=== PATIENT | female | born 2000 | race Caucasian/White ===

== ENCOUNTER → 2020-04-08 12:51 | Outpatient (CLI) | payer OTHER, SELFPAY ==
[2019-08-21 13:27] VITALS: BMI 21.2
[2020-04-08 15:32] LABS: ALB/GLOB Ratio 1.1 RATIO (0.9-2.4); AST(SGOT) 15 U/L (15-37); Alanine Aminotransfer ALT/SGPT 21 U/L (13-56); Alkaline Phosphatase 54 U/L (45-117); Anion Gap 6 (5-15); BUN 15 mg/dL (7-18); BUN/Creat Ratio 16.4 RATIO (10-20); Calcium,Total 9.3 mg/dL (8.5-10.1); Chloride 104 mmol/L (98-107); Creatinine, Serum 0.91 mg/dL (0.55-1.02); EST Glomerular Filtration Rate 83 mL/min (>60); Est Glom Filt Rate - Afr Amer 101 mL/min (>60); Globulin 3.8 g/dL (2.2-4.2); Glucose 80 mg/dL (74-106); Potassium 3.9 mmol/L (3.5-5.1); Protein, Total 7.8 g/dL (6.4-8.2); Sodium Level 137 mmol/L (136-145); Thyroid Stim Hormone (TSH) 1.25 uIU/mL (0.358-3.74)
== END ==
PROVIDERS: PCP Family Medicine; Referring Provider Family Medicine; Visit Provider Family Medicine
DX: R00.0 Tachycardia, unspecified (principal)
CPT/HCPCS: 36415; 80053; 84443

== ENCOUNTER 2021-01-31 09:00 | Outpatient (RCR) | payer OTHER, SELFPAY ==
[2021-01-25 13:29] VITALS: BMI 21.2
--- NOTE | 2021-01-31 08:57 | BH.SGPN.GN ---
Behaviors/Verbalizations/Mental Status: []Eye contact is good. Motor activity is appropriate. Appearance is casual. Speech is Appropriate. Mood is anxious and depressed. Affect is congruent. Thoughts are linear and logical. No evidence of psychosis. Reviewed daily check in sheet and no reports of suicidal ideations or intent. Client Response/Progress/Benefit: []Pt first day in IOP tx, she was an attentive participant AEB actively listening, nodding throughout, as well as willingness to process with group. Pt reports emotion for the day as ?anxious and irritable? and discussed this is related to several stressors leading to client seeking IOP tx. Client discussed she has been struggling all summer with a loss of motivation and interest which has impacted overall mood and led to becoming increasingly isolated. Client shared wanting to work on improving her ability to cope with depression and find healthy skill for managing her emotions. Discussed looking forward to the shared experience of the group treatment environment as well. Pt benefited from group support, encouragement, and feedback. Will continue in IOP tx to continue to improve mood stability, improve healthy coping behaviors, and prevent decompensation. Narrative Note: []
--- NOTE | 2021-01-31 10:10 | BH.SGPN.GN ---
Behaviors/Verbalizations/Mental Status: [] Eye contact is good. Motor activity is appropriate. Appearance is casual. Speech is Appropriate. Mood is depressed. Affect is flat. Thoughts are linear and logical. No evidence of psychosis. Client Response/Progress/Benefit: [] Pt participated at times during group discussions. Attentive during psychoeducation. Participated and provided insight along with peers on obstacles or potholes that hinder our ability to communicate in stressful situations. Group identified the following obstacles; impulsivity (reacting to fast to comments and situations), mental health struggles, physical health struggles (headaches, pain, poor sleep), toxic or unhealthy relationship patterns, work/responsibilities (feeling overwhelmed), lack of proper self-care on our part, and negative thinking patterns (mind-reading, catastrophizing). Pt provided insight on how emotion and mood can impact effective communication. Pt did well in her role in the experiential activity and was able to communicate effectively with peers. Benefited from increased awareness on how our emotions impact our communication. Will continue in IOP to maintain safety, increase healthy coping skills, and to prevent decompensation. Narrative Note: []
--- NOTE | 2021-01-31 11:10 | BH.SGPN.GN ---
Behaviors/Verbalizations/Mental Status: []Client alert and oriented, neatly dressed and groomed. Eye contact good. Motor activity appropriate. Speech within normal limits. Affect constricted, mood anxious. Thoughts linear, logical, no signs of hallucinations or delusions. Client Response/Progress/Benefit: []Client engaged in session AEB client listening attentively to peers and providing input. Attentive during psychoeducation on 4 zones of regulation. Client able to identify feelings and behaviors for each zone. Client identified coping skills one can use to support self in each zone which included: opposite action, exercise, journaling, reaching out to support, and grounding skills. Client stated belief that she is in the yellow and blue zones today as client is anxious and agitated, but also sad. Client stated she plans to cook and exercise today to improve her mood. Benefited from increased education on zones of regulation or stages of alertness for emotions and healthy coping skills to use for each zone. First day of IOP tx. Will continue IOP tx to prevent decompensation, learn healthy coping skills, and improve daily functioning. Narrative Note: []
--- NOTE | 2021-02-02 09:00 | BH.SGPN.GN ---
Behaviors/Verbalizations/Mental Status: []Client alert and oriented, neatly dressed and groomed. Eye contact good. Motor activity appropriate. Speech within normal limits. Affect congruent, mood anxious. Thoughts linear, logical, no signs of hallucinations or delusions. Reviewed client?s symptom tracker, no risk for suicidal ideation, plan, or intent as of 02/02/21 Client Response/Progress/Benefit: []Client responded well to session, first week of IOP tx. Client reports that her mood day has improved since her first day, but she still feels a little low. Client shared her biggest stressors right now are returning to school and dealing with depression. Client received supportive statements and coping skills from peers. Client stated she has some ideas of what will help client be more successful at school such as taking less classes and living alone. Appeared to benefit from group support. Will continue IOP tx improve functioning, reinforce healthy coping skills, and reduce isolation. Narrative Note: []
--- NOTE | 2021-02-02 10:15 | BH.SGPN.GN ---
Behaviors/Verbalizations/Mental Status: [] Eye contact is good. Motor activity is appropriate. Appearance is casual. Speech is Appropriate. Mood is depressed. Affect is flat. Thoughts are linear and logical. No evidence of psychosis. Client Response/Progress/Benefit: [] Pt participated at times during group discission. Participated in small group activity. Attentive during psychoeducation on fixed mindset. Pt along with her peers provided insight on the aspects of a fixed mindset which included; being rigid, absolute thinking, why bother perspective, no confidence that one can succeed, and thoughts that one will never get better. Pt and peers were presented with a task which was meant to seem impossible. Pt identified common fixed mindset statements that she often uses which are I'll always be single and I can't get through this. Benefited from education on fixed mindset and how it impacts mental health. Will continue in IOP to maintain safety, increase healthy coping skills, and improve functioning. Narrative Note: []
--- NOTE | 2021-02-02 11:15 | BH.SGPN.GN ---
Behaviors/Verbalizations/Mental Status: [] Client alert and oriented, casually dressed and groomed. Eye contact good. Motor activity appropriate. Speech within normal limits, quiet. Affect congruent. mood anxious and depressed. Thoughts linear, logical, no signs of hallucinations or delusions. Client Response/Progress/Benefit: [] Client new to IOP tx. She did well to remain engaged during activity and discussion AEB remaining attentive and taking notes throughout. Client did well to engage as group worked on identifying characteristics and benefits of adopting a growth mindset. Listened to fellow participants reframing the example fixed thoughts into growth mindset thoughts. Client worked in small group to apply skills learned to reframe own personal fixed thoughts. Reframed personal fixed thought of ?I can?t get through this? with growth mindset thought of ?It?s okay if I need help. This might be really hard right now but I can take it one step at a time?. Noted that this would aid in reducing anxiety, and improve willingness to ask for help. Benefitted from discussing benefits of growth mindset and brainstorming strategies for prompting growth-mindset. Will continue IOP tx to continue to promote active thought challenging and skill application, maintain stability, as well as continue to improve healthy coping repertoire. Narrative Note: []
--- NOTE | 2021-02-02 11:22 | BH.NA ---
Physical Data - Vital Signs Pulse Rate: 91 Blood Pressure: 115/76 - Height/Weight Height: 1.65 m Weight:: 68.946 kg Weight in Pounds: 152.0 lbs Current Medication Compliance - Medication Compliance Do you take your medication as prescribed?: Yes Nutritional History - Appetite Nutritional Instructions:: If client shows signs of a swallowing problem, weight change of 10 pounds or more in the last month, or is on a diabetic diet, the physician will review and request a dietitian consult, as appropriate. All unintentional weight loss will be referred to the physician for decision on need for dietitian consult. Describe your appetite:: Good Additional nutritional information:: Client states she has had a 10-20lb weight gain in the last year. Functional Assessment - Sleep Pattern Describe any problems with sleeping: Client states she sleeps about 8 hours per night. - Activities Motor Activity:: Functional Sensory/Communication Assess - Communication Problems Do you have difficulty understanding what people are saying?: No Learning Assessment - Education What is your level of education?: Some College Medical Problems/History - Pain Assessment Do you have acute or chronic pain?: No - Additional History Additional comments:: OCD, anxiety Surgical History - Surgical History Have you had any surgeries? If so, list type and date:: No Substance Abuse - Substance Abuse Please describe substance abuse in the last 30 days:: Client denies alcohol, tobacco or substance use. Mental Status Summary - Mental Status Significant Findings/Observations on Appearance and Mood:: Client is alert and oriented x 4. Client is casually groomed with good hygiene. Client makes good eye contact. Client's voice has normal rate and volume. Client has appropriate affect and makes logical associations. Client denies delusions/hallucinations. Client reports fleeting SI at times. Suicide Assessment - Suicidal Ideation Are you currently or have you been suicidal in the past?: Yes - client states occasional fleeting SI Suicidal Intentional Rating Scale (SIRS): Suicidal thoughts (past) Physician Notification: If Active suicidal thoughts/Will not contract for safety is checked, contact physician and document in the Physician Notification section below. Assault History/Potential Past Psychiatric History - Treatment Hx Past Psychiatric Medications:: Lexapro, Klonopin, Xanax Age of first mental health symptoms: Client states she was diagnosed with OCD and anxiety at age 15 and has been on medication for both since. Describe (age, circumstance, etc) any past hospitalizations: None. Current providers for mental health treatment (counselor, psychiatrist, assistant case manager, etc.): counselor at [facility] Risk Assessment - Age Age: Less than 60 - Mental Status Mental Status: Willing & able to ask for assistance when needed - Physical Status Physical Status: No problems - Impairments Impairments: None - Elimination Elimination: Continent AND independent - Gait or Balance Gait or Balance: Walks independently - Hx of Falls History of falls in the past 6 months: No known history - Medications/Substances Psychotropics:: Antidepressants, Antipsychotics Others:: Antihypertensives Medications/substances used within the past 24 hours or ordered to administer: 3 or more of the medications/substances listed above - Total Score Total Points:: 2 RN Summary of Impressions - Impressions Recommendations: Include psychiatric and medical issues, treatment planning recommendations, and discharge planning needs. Impressions: Psychiatric Issues: 1. Obsessive-compulsive disorder. 2. Generalized anxiety disorder, separation anxiety, social anxiety disorder. 3. Major depressive disorder, recurrent, severe without psychosis. 4. School, primary support issues - Level of Care How do the client's current symptoms and functional deficits support need for this level of care?: Client was referred to IOP by PCP and encouraged by parents to come due to worsening depression and anxiety. Client states this summer she has felt very depressed, endorsing feelings of hopelessness, isolation, feeling numb, and decreased ADL's. Client has OCD and states this summer she has had an increased in obsessive thoughts and does have some compulsions at times (ritual praying and bible reading). Client reports fleeting SI at times but denies plan. IOP will promote gains and prevent further decompensation while providing social support and skills training.
[2021-02-02 11:44] VITALS: BP 115/76; PULSE 91
--- NOTE | 2021-02-02 12:47 | BH.PSY.EVA_ITS ---
Psychiatric Evaluation Initial Evaluation Initial Evaluation: History of Present Illness: [] The patient is a 20-year-old single female with a history of OCD and generalized anxiety disorder who is referred to the [facility] behavioral health IOP program by her primary care doctor due to worsening symptoms of depression and anxiety. The patient currently lives with her parents and her 19-year-old brother in [facility]. The patient has a history of OCD since 11th grade and this involves intrusive thoughts that are gnosticist in nature. The patient engages in rituals including reading the Bible and praying a lot to relieve the anxiety caused by the intrusive gnosticist thoughts. She has thoughts such as if I do not read the Bible, something bad will happen. She has other thoughts around sin. In addition and recently the patient's intrusive thoughts have also involved obsessing over whether a pablo she is communicating with will respond to her texts. She becomes obsessed over this and this is even interfered with her being present when she is with other friends. The patient also checks curling irons and locks at times but this is much less than her above obsessions and prior rituals. She is a [employer] but does not attend any churches. For primary support she has her mother. Her biggest stress now is going back to college at [employer] in about 4 weeks. She is supposed to him move into a dorm room at that time as she starts her senior year at college but in the past her anxiety has been so severe about living in a dorm room that she has had to commute from home to college. She has separation anxiety still and had it as a child. She is cur rently in school for film studies but she is uncertain if she will do this for living. She endorses feeling depressed which has increased in the past month or 2. She has apathy and has been isolating herself. She spends a lot of time lying in bed. She endorses feeling hopelessness and sometimes worthlessness. She feels guilt a lot for her sins. She is not enjoying anything she does. Her appetite is okay and her sleep is okay at 8 hours a night. Her energy level and concentration are both decreased. She has had passive thoughts of in the past week. She also has had fleeting fantasy of suicidal ideation with a plan to overdose. She denies active suicidal ideation at this time. She denies homicidal ideation, hallucinations, delusions or symptoms of staci ever. She denies a history of self-harm, seizure or head trauma. She denies panic attacks, eating disorder, trauma or PTSD. She does admit to being a worrier all her life and she also admits to social anxiety. Current Psychiatric Medications: [] Effexor Exar 225 mg p.o. nightly (she takes 375 mg capsules and has been on this for 1 year); Abilify 5 mg p.o. daily (x6- month); BuSpar 10 mg twice daily; metoprolol 25 mg p.o. daily Past Psychiatric History: [] No history of psychiatric admissions and no suicide attempts ever. Her primary care doctor gives her her medications and she has a counselor now. Counseling has been helpful to her and she has had it off and on since age 12. She was diagnosed with OCD at age 15. She first took medications for psychiatric reasons at age 15 for OCD and depression. In the past she has taken Prozac for about 2 years which helped her. It was discontinued at age 17 because the doctor felt it was not working enough anymore. She also has taken a few other medications whose name she does not recall and she has also taken Lexapro, Xanax and Klonopin in the past. Substance Use History: [] No drug use. No marijuana use. No rehab ever. No alcohol use. Non-smoker and no vaping. Allergies: [] No known allergies Medications: [] For psych meds as above plus oral contraceptive pills. Past Medical History: [] No medical illnesses. No surgeries ever. She is a 0 para 0 female who has regular menstrual periods. Family Psychiatric History: [] Mother is 50 years old and father is 60 years old and they are relatively healthy. Her mother has OCD but patient says she is undiagnosed. Her maternal grandmother also had OCD which was diagnosed. No suicides in the family. No substance issues in the family. Personal/Social History: [] She was born in [place] and then moved to [place] at age 13. She describes her childhood as happy but I have always worried about everything. Her parents are loving and she has 1 brother 2 years younger and she gets along well with him. She denies any physical, verbal, emotional or sexual abuse ever. She did have separation anxiety and going to kindergarten first grade and still has it in regards to not wanting to live at the dorm in college. School was hard for her due to spelt duration anxiety and due to her social anxiety. However she has some friends and she did graduate high school and then went to [employer] and is about to start her senior year there. She has commuted to college but will try to live in the dorms in about 4 weeks. She is heterosexual but has not had any serious boyfriends and is not sexually active. 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 Legal History: [] No arrests ever. 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 Review of Systems: [] Review of systems negative except as noted in the present illness. Vital Signs: [] Reviewed in nurses notes. Mental Status Examination: [] Patient is a 20-year-old female who is seen wearing a mask due to the pandemic and is casually dressed and groomed with good hygiene. She has no psychomotor agitation or retardation. She appears normal for stated age. Eye contact is good and speech is normal rate and rhythm and fluent with no pressure. Mood is anxious and depressed. Affect is constricted. Thought process is goal-directed and organized. Thought content: There is evidence of intrusive thoughts around judaism and around worry that romantic interests will text her back. There is evidence of passive thoughts of and fleeting passive suicidal ideation with a plan to overdose. She denies active suicidal ideation in the past few days. There is no evidence of homicidal ideation, hallucinations, delusions or symptoms of staci ever. Diagnoses: [] 1. Obsessive-compulsive disorder 2. Generalized anxiety disorder, separation anxiety, social anxiety disorder 3. Major depressive disorder, recurrent, severe without psychosis 4. School, primary support issues Plan: [] The patient will start the IOP program at [facility] as the structure, support, education, group therapy will hopefully prevent worsening of the patient's symptoms. She felt safe during the interview and if it anytime she does not feel safe she will let us know or go to the emergency room. The risks, options, possible side effects and complications of the medications were discussed with the patient and she understands and accepts these. No medication changes were made as the patient feels the current regimen has helped her significantly. If the patient's symptoms do not improve in the next week or 2 with the support of the IOP program I will consider increasing the Abilify or adding an additional medication. I will see the patient in follow-up in 1 to 2 weeks. She will continue to follow-up with her outpatient providers also.
--- NOTE | 2021-02-02 13:01 | BH.DR.ITP ---
Initial Treatment Plan Patient Information Visit Information: ADMISSION DATE: EXPECTED LOS: 4-6 weeks Problems/Symptoms Problem #1:: Depression Symptom:: Sadness, hopelessness, apathy, anhedonia, decreased energy, decreased concentration, passive thoughts of , fleeting passive suicidal ideation Problem #2:: Anxiety Symptom:: Worry, rumination, intrusive thoughts and rituals, avoidance of social activity
--- NOTE | 2021-02-02 15:33 | BH.MTP ---
[facility] Treatment Plan - Patient Information Program Physician:: Dr. Gela Rene Primary Therapist:: Payal GASTON - Psychiatric Diagnoses Psychiatric Diagnoses:: Obsessive-compulsive disorder; Generalized anxiety disorder, separation anxiety, social anxiety disorder; Major depressive disorder, recurrent, severe without psychosis F 33.2 Diagnosis Code(s):: F 33.2 - Estimated LOS Estimated LOS (in weeks):: 4 Problem/Goal #1 - Problem/Goal #1 Stated Goal:: Client will reduce depressive symptoms, thoughts of , and apathy due major depressive disorder. Description of Barriers: Client's goal is to return to college in a month, which puts a time barrier on treatment. Client endorses numerous distorted thought patterns that reinforce depression and OCD. Client reports not enjoying activities she used to and little motivation. Functional Impact: Client is a 20-year-old female with a history of OCD, depression, and anxiety. Client was referred by her PCP due to worsening symptoms of depression, OCD, and anxiety over the past few months. Client was diagnosed with OCD in high school and she reports that her intrusive thoughts have decreased significantly since getting counseling. However, some intrusive thoughts are still present such as if I don't read the bible something bad will happen. Client reports her OCD manifests in different ways and she is currently having obsessional thoughts about a pablo she is talking to not responding to her texts. Client endorses a depressed mood over the past few months with lack of concentration, lack of energy, crying spells, isolation, apathy, and hopelessness. Client also endorses thoughts of and fleeting passive suicidal ideations at times. Returning to school is a major stressor and client plans to return in a month. Client's symptoms are currently impacting her social and educational functioning. Goal Relevant Strengths/Supports: Client is intelligent and has had counseling in the past, so she has knowledge of coping skills. Client's parents are supportive. - Objectives Objective #1 Stated Objective: Client will learn and utilize 2-3 healthy coping strategies to better manage depressive symptoms as shown by reduced DSM-5 scores. Interventions: Through group and individual sessions, therapist will help client identify triggers and warning signs of depression. Therapist will teach client various coping skills to manage her symptoms and give client tangible resources to use to regulate emotions. Therapist will provide psychoeducation on cognitive distortions and maintenance cycles and strategies to break unhealthy maintenance cycles. Discharge Criteria: Client will have met this goal when she can report learning and using at least 2 coping skills to manage depressive symptoms and show a reduction in DSM-5 depression symptoms. Target Date: 02/28/21 Review Date: 02/28/21 Status: open Objective #2 Stated Objective: Client will identify at least 2-3 negative self-talk messages used to reinforce depression/loneliness and replace thoughts with positive, realistic messages. Interventions: Therapist will help client identify distorted, negative beliefs about self and replace with more realistic, affirmative messages. Therapist will use CBT to help client increase insight to the connection between thoughts, emotions, and behaviors. Therapist will help client increase awareness of unjustified guilt and how this has impacted client's mental health. Therapist will encourage client to practice thought challenging and self-compassion. Discharge Criteria: Client will have achieved this goal when can verbalize at least 2 negative self-talk messages and effectively replace those thoughts with affirmative messages. Target Date: 02/28/21 Review Date: 02/28/21 Status: open Problem/Goal #2 - Problem/Goal #2 Stated Goal:: client will reduce overall frequency, intensity, and duration of anxiety and intrusive health thoughts so that daily functioning is not impaired. Description of Barriers: Client's goal is to return to college in a month, which puts a time barrier on treatment. Client endorses numerous distorted thought patterns that reinforce depression and OCD. Client reports not enjoying activities she used to and little motivation. Functional Impact: Client is a 20-year-old female with a history of OCD, depression, and anxiety. Client was referred by her PCP due to worsening symptoms of depression, OCD, and anxiety over the past few months. Client was diagnosed with OCD in high school and she reports that her intrusive thoughts have decreased significantly since getting counseling. However, some intrusive thoughts are still present such as if I don't read the bible something bad will happen. Client reports her OCD manifests in different ways and she is currently having obsessional thoughts about a pablo she is talking to not responding to her texts. Client endorses a depressed mood over the past few months with lack of concentration, lack of energy, crying spells, isolation, apathy, and hopelessness. Client also endorses thoughts of and fleeting passive suicidal ideations at times. Returning to school is a major stressor and client plans to return in a month. Client's symptoms are currently impacting her social and educational functioning. Goal Relevant Strengths/Supports: Client is intelligent and has had counseling in the past, so she has knowledge of coping skills. Client's parents are supportive. - Objectives Objective #1 Stated Objective: Client will identify 2-3 anxiety triggers and 2 coping skills to use when feeling anxious to manage anxiety as shown by reducing DSM-5 scores for anxiety. Interventions: Through group and individual sessions, client will gain awareness of her anxiety triggers and learn numerous techniques to manage anxiety symptoms. Therapist will mindfulness and other calming techniques to manage symptoms and increase emotional resilience. Discharge Criteria: Client will have met this goal if client can prevent decompensation as evidenced by stability in DSM-5 scores and when she can identify at least 2 triggers and 2 ways to cope with anxiety. Target Date: 02/28/21 Review Date: 02/28/21 Status: open
--- NOTE | 2021-02-04 09:00 | BH.SGPN.GN ---
Behaviors/Verbalizations/Mental Status: []Client alert and oriented, casually dressed and groomed. Eye contact good. Motor activity appropriate. Speech within normal limits. Affect constricted, mood dysthymic. Thoughts linear, logical, no signs of hallucinations or delusions. Reviewed client?s symptom tracker, no risk for suicidal ideation, plan, or intent as of 02/04/21 Client Response/Progress/Benefit: []Client responded well to session, receptive to feedback from peers. Client reports feeling a little blue this morning, but client does not feel as depressed. Client stated she cooked twice yesterday and pushed herself to exercise. Client stated her biggest stressor right now is returning to school the end of February. Client shared I'm on the fence about my career which causes client to second-guess and worry about her future. Group offered supportive statements and encouragement to client which client reported was helpful. Appeared to benefit from gaining supportive feedback from peers and reflecting on her positives. Will continue IOP tx to prevent decompensation, reduce distortions, and improve ability to cope with daily stressors. Narrative Note: []
--- NOTE | 2021-02-04 10:10 | BH.SGPN.GN ---
Behaviors/Verbalizations/Mental Status: [] Eye contact is good. Motor activity is appropriate. Appearance is casual. Speech is Appropriate. Mood is anxious. Affect is congruent. Thoughts are linear and logical. No evidence of psychosis. Client Response/Progress/Benefit: [] Pt participated at times during group discussion. Active during group activity. Attentive during psychoeducation. Pt provided insight and feedback during group discussion on how social supports can be similar to a safety net, the importance of social supports, benefits of social supports, and how strong or poor social supports impact our mental health. Worked well with peers in experiential activity and was able to relate activity to group topic. Benefited from increase awareness of the benefits of social support and the importance of maintain a balanced support system. Will continue in IOP to maintain safety, decrease intrusive thoughts, and improve daily functioning. Narrative Note: []
--- NOTE | 2021-02-04 12:01 | BH.PSA_ITS ---
Source of Information - Presenting Problems/Circumstances Problems, Referral Source, Mental Status, Client: Client is a 20-year-old female with a history of OCD, depression, and anxiety. Client was referred by her PCP due to worsening symptoms of depression, OCD, and anxiety over the past few months. Client was diagnosed with OCD in high school and she reports that her intrusive thoughts have decreased significantly since getting counseling. However, some intrusive thoughts are still present such as if I don't read the bible something bad will happen. Client reports her OCD manifests in different ways and she is currently having obsessional thoughts about a pablo she is talking to not responding to her texts. Client endorses a depressed mood over the past few months with lack of concentration, lack of energy, crying spells, isolation, apathy, and hopelessness. Client also endorses thoughts of and fleeting passive suicidal ideations at times. Returning to school is a major stressor and client plans to return in a month. Client's symptoms are currently impacting her social and educational functioning. Psychiatric Presentation - Psych Issues & Need for Admission Psychiatric Issues:: Obsessive-compulsive disorder; Generalized anxiety disorder, separation anxiety, social anxiety disorder; Major depressive disorder, recurrent, severe without psychosis F 33.2 Past Psychiatric History - Treatment Hx Treatment History: No history of psychiatric admissions and no suicide attempts ever. Client's PCP gives her her medications and she sees Dr. Banuelos through [facility]. Counseling has been helpful to her and she has had it off and on since age 12. Client was diagnosed with OCD at age 15 and first took medications for psychiatric reasons at age 15 for OCD and depression. In the past she has taken Prozac for about 2 years which helped her. It was discontinued at age 17 because the doctor felt it was not working enough anymore. She also has taken a few other medications whose name she does not recall and she has also taken Lexapro, Xanax and Klonopin in the past. First hospitalization:: n/a Most recent hospitalization:: n/a Medication Trials:: Yes ECT Therapy:: No Age of first mental health symptoms: See treatment history Describe (age, circumstance, etc) any past hospitalizations: None reported Current providers for mental health treatment (counselor, psychiatrist, onsite case manager, etc.): PCP for medication management and Dr. Banuelos for individual counseling. Development & Family of Origin - Childhood Significant Childhood Events: She did have separation anxiety and going to kindergarten first grade and still has it in regards to not wanting to live at the dorm in college. - Family Who currently lives in your home?: Client lives with her younger brother and parents. Client will be moving to college in about a month. Describe family composition:: Client has one brother who is two years younger and they are close. Client's parents are and client is close with both of them. Client identifies her mothers as her best friend. Client is not and has no children. - Family History Family Hx of Psychiatric or AOD Problems: Client's mother has OCD but patient says she is undiagnosed. Client's maternal grandmother also had OCD which was diagnosed. No suicides in the family. No substance issues in the family. Ethnicity - Culture Do you identify yourself with any particular cultural, ethnic background, or community?: No - Sexuality Sexual Orientation: Heterosexual Spirituality - Sabianism Do you currently identify with any organized denominational?: Congregational - Beliefs Is there a particular form of support from this community you can use for your recovery?: Yes Mental Status - Memory Recent Memory: Good Remote Memory: Good - Concentration Concentration: Good - Eye Contact Eye Contact: Good - Speech Speech: Soft - Thought Process Thought Process: Obsessions, Ruminations Insight: Good Judgment: Good Behavior: Anxious - Orientation Orientation: Time, Person, Place, Situation - Appearance Appearance: Neat/clean - Mood Mood: Anxious, Depressed - Affect Affect: Appropriate/calm Suicide Assessment - Suicidal Ideation Have you ever felt like hurting yourself?: Yes Please explain:: Client has passive suicidal ideations with thoughts of overdosing. Denies she would act on these thoughts. No history of attempts. Were you using ETOH/drugs at the time?: No Suicidal Intentional Rating Scale (SIRS): Current suicidal thoughts/No plan/Contracts for safety - There is evidence of passive thoughts of and fleeting passive suicidal ideation with a plan to overdose. She denies active suicidal ideation in the past few days. Future oriented and denies any intent to act of these thoughts. Physician Notification: If Active suicidal thoughts/Will not contract for safety is checked, contact physician and document in the Physician Notification section below. Violent Behavior/Abuse History - Homicidal Ideation Do you have any homicidal thoughts? If so, explain:: No Is there a known potential victim? If yes, who:: No - Abuse Have you ever been abused?: No - Life Events Are there any other significant life events?: Hardships Describe significant life events: Client moved from [facility] to [place] when client was 13 years old. Client has struggled with anxiety for most of her life and is currently having a hard time living alone/staying on campus. 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 - Safety Do you ever feel threatened in your home? If yes, describe:: No Adult Social History - Age 17 to Present Describe your current support system:: Client identifies her mother and a few close friends as primary support. Substance Use - Substance Substance Use Type: None Leisure/Social Activities - Interests What do you enjoy or might be interested in learning about?: Client is going to school for film studies and she used to enjoy watching films. Client also used t o enjoy reading. Education & Occupational Histo - Education What is your level of education?: Some College - client plans to begin her senior year at [employer] in the fall. Do you have any learning disabilities?: No - Occupation List any current or past employment:: Client worked for 2 years at a [employer] shop in the past. Service - Service Have you ever been in the ?: No Legal History - Records Have you had any past legal charges?: No Do you have any current legal charges?: No Have you ever been incarcerated? If yes, describe:: No - Court Orders Have you had any past court orders for psychiatric treatment?: No Do you have a present court order for psychiatric treatment?: No Problem Checklist - Current Problem Areas Problem List: Nutritional/Eating pattern changes, Depressed mood/sad, Anxiety, Inattention, Additional psychosocial stressors Discharge Planning Needs - Anticipated Follow-Up Mental Health Center (Name/Phone Number):: [facility] Private Therapist/Psychiatrist:: Dr. Banuelos Primary Care Physician: [facility] Contacts: n/a [facility] Name/Phone Number: n/a [facility] Helper's Assessment - Client's Needs What are the client's strengths?: Client is intelligent and has had counseling in the past, so she has knowledge of coping skills. Client's parents are supportive. Diagnoses - Diagnoses Diagnosis #1:: OCD Diagnosis #2:: Social Anxiety Diagnosis #3:: MDD, recurrent, severe without psychosis Diagnosis #4:: KINGS Interpretive Summary - Interpretive Summary Interpretive Summary: client is a 20-year-old single female with a history of OCD and generalized anxiety disorder who is referred IOP by her PCP due to worsening symptoms of depression and anxiety. Client currently lives with her parents and her 19-year-old brother in [place], [place]. The client has a history of OCD since 11th grade, and this involves intrusive thoughts that are evangelical in nature. Client engages in rituals including reading the Bible and praying a lot to relieve the anxiety caused by the intrusive evangelical thoughts. She has thoughts such as if I do not read the Bible, something bad will happen. Client reports her OCD will manifest in different ways at times and she is currently having intrusive thoughts and obsessing over whether a pablo she is communicating with will respond to her texts. Per client?s report, she becomes obsessed over this and this has interfered with her being present when she is with other friends. Client also checks curling irons and locks at times but this is much less than her above obsessions and prior rituals. For primary support she has her mother and a few close friends. Client?s biggest stress now is going back to college at [employer] in about 4 weeks. Client hopes to move into a dorm room at that time as she starts her senior year at college, but in the past client?s anxiety has been so severe about living in a dorm room that she has had to commute from home to college. Client reports her parents have even tried ?bribing me with a trip to [place] if I can stay at school? but this did not work last year. She has separation anxiety still and had it as a child. Client is currently in school for film studies, but she is uncertain if she will do this for living. Another major stressor is that client feels very lonely and often compares where she is at in life to her close friends. Client stated ?all my friends are getting engaged or and I?ve never had a serious boyfri end.? Client reports her depression is more of an issue right now and reports her depression has increased over the past month. She has apathy and has been isolating herself. She spends a lot of time lying in bed. She endorses feeling hopelessness and sometimes worthlessness. She feels guilt a lot for her sins. She is not enjoying anything she does. Client?s appetite is okay and her sleep is okay at 8 hours a night. Client?s energy level and concentration are both decreased. Client also has had passive thoughts of in the past week and a fleeting fantasy of suicidal ideation with a plan to overdose. Client denies active suicidal ideation at this time. She denies homicidal ideation, hallucinations, delusions or symptoms of staci ever. Client denies a history of self-harm, seizure or head trauma. Client denies panic attacks, eating disorder, trauma or PTSD. She does admit to being a worrier all her life and she also admits to social anxiety. Client has family history of OCD. Denies personal substance abuse history and no family substance abuse history. Treatment Plan Recommendations - Recommendations Guidelines: Special needs identified to be included in the development of an individualized treatment plan regarding past psychiatric history and treatment, developmental events, family relationships/events/culture, past and/or current educational, occupational, social, and residential experience, and legal status. Recommendations:: Client will start the IOP program at [facility] as the structure, support, education, group therapy will hopefully prevent worsening of client?s symptoms. She felt safe during the interview and if it anytime she does not feel safe she will let us know or go to the emergency room. The risks, options, possible side effects and complications of the medications were discussed between client and [facility] psychiatrist and she understands and accepts these. No medication changes were made as the patient feels the current regimen has helped her significantly. If client?s symptoms do not improve in the next week or two, IOP psychiatrist may increase Abilify. Client encouraged to follow up with outpatient providers and will need outpatient psychiatry.
--- NOTE | 2021-02-04 12:01 | BH.MDN ---
Multi-Disciplinary Note - Note 30-min Individual Time Started:: 11:12 Date: 02/04/21 Purpose of session/treatment goals addressed:: The purpose of this session was to gather information on client's current stressors, symptoms, and treatment goals. Another goal was to build rapport and provide psychoeducation. Eye Contact:: Good Motor Activity:: Appropriate Appearance:: Neat Speech:: Soft Mood:: Anxious, Dysthymic Affect:: Other - incongruent AEB smiling throughout session while reporting a depressed mood. Thoughts:: Linear, Logical, No evidence of hallucinations/delusions noted Staff Interventions:: Therapist used active listening and open-ended questions to explore client's current stressors, symptoms, history, and treatment goals. Therapist used strengths perspective to build rapport. Therapist provided brief psychoeducation on maintenance cycles for depression and taught client A.C.E Client Response:: Client responded well to session, open to meeting with therapist. Client reports so far group has gone well. Client shared she is trying to take more notes and review the coping skills more often. Client stated in the past she was not always consistent with homework given by her therapist and client wants to improve upon this. Client reports her biggest stressor right now is that she feels lonely and has been obsessing about finding a boyfriend this summer. Client shared when the pablo she is currently talking to does not respond to her, client becomes negative with herself and depressed. Client reports a long-standing history of anxiety and OCD, but client feels at this time her self-worth and depression are bigger problems. Client reports she does a lot of comparing herself to her older friends who keep getting . Client connected with the psychoeducation on depression's maintenance cycle and came up with her own examples. Client stated when she is depressed she often thinks I'll never find happiness and I'm always going to be in the state I'm in now. This leads to isolation, crying, laying in bed, and over-eating. Client able to recognize the consequences that come with these behaviors such as further ruminating, lack of self-care, and more isolation. Client learned A.C.E to help client set small goals for each day. Client plans to accomplish one chore a day, do something that helps client feel closeness with herself, and one thing she enjoys each day. Risks/Concerns:: Client denies any active suicidal ideations, plan, or intent as of 02/04/21. Future oriented. Progress Toward Goals/Plan:: Client stated IOP tx this week and she appears to be responding well during group sessions. Client currently endorses a depressed mood, crying spells, lack of motivation, lack of energy, and isolation. Client reports long-standing history of OCD, but she reports her depression has been the biggest problem lately. Client's treatment goals include reducing depressive symptoms and gaining intrapersonal skills. Will continue IOP tx to prevent decompensation, improve daily functioning, and increase use of healthy coping skills. Time Stopped:: 11:45
== END 2021-02-05 23:59 ==
LOC: BHIOP 09:00
PROVIDERS: PCP Family Medicine; Referring Provider Psychiatry & Neurology Psychiatry; Visit Provider Psychiatry & Neurology Psychiatry
DX: F42.9 Obsessive-compulsive disorder, unspecified (principal); F41.1 Generalized anxiety disorder; F33.2 Major depressive disorder, recurrent severe without psychotic features; Z79.899 Other long term (current) drug therapy
CPT/HCPCS: S9480; 90832; 90853

== ENCOUNTER 2021-02-07 07:49 | Outpatient (RCR) | payer OTHER, SELFPAY ==
[2021-01-25 13:29] VITALS: BMI 21.2
[2021-02-06 00:40] VITALS: BP 115/76; PULSE 91
--- NOTE | 2021-02-07 09:00 | BH.SGPN.GN ---
Behaviors/Verbalizations/Mental Status: []Eye contact is good. Motor activity is appropriate. Appearance is casual. Speech is Appropriate. Mood is dysthymic and anxious. Affect is congruent. Thoughts are linear and logical. No evidence of psychosis. Reviewed daily check in sheet and client denies suicidal ideations, plan, or intent. Client Response/Progress/Benefit: [] Pt was an attentive participant AEB actively listening, as well as willingness to process with group. Client reports emotion for the day as ?lonely? noting this has been an ongoing stressor for her as she does not have many supports in the area. Expressed beliefs she will feel less lonely once back in school and having a more consistent routine. Additionally noted struggling with motivation which is also reinforcing depressive sx. Was receptive of supportive feedback and suggestions for combating low motivation as provided by the group. Pt did well to identify mental health wins which included cleaning her bedroom and attending hoahaoism for the first time in a longtime. Reflected that spiritual self-care is something she has been lacking recently and felt encouraged in taking a step to tap back into this area of her life. Benefited from group support, encouragement, and feedback. Will continue in IOP to reduce depression, further promote healthy coping behaviors, and prevent decompensation. Narrative Note: []
--- NOTE | 2021-02-07 10:05 | BH.SGPN.GN ---
Behaviors/Verbalizations/Mental Status: []Client alert and oriented, casually dressed and groomed. Eye contact good. Motor activity WNL. Speech within normal limits. Affect congruent, mood anxious and dysthymic. Thoughts linear, logical, no signs of hallucinations or delusions. Client Response/Progress/Benefit: []Client responded well to session, attentive and engaged throughout discussion and activity. Agreed with session quote and shared that fear has kept her from believing in herself and led to feeling like she wasn?t ?good enough?. The group discussed how mindset and one?s reaction to setbacks determines progress. Client shared fear of other?s responses and fear of disappointing herself has reinforced fear of failure in the past. Shared this has led to client feeling less motivated and more depressed as a result. Client appeared to benefit from gaining awareness of the impact fear of failure can have on one?s mental health and wellbeing. Progress noted as client continues to improve engagement in group setting, gain insight and coping skills which have improved overall ability to manage stressors and is taking small steps towards reducing depression. Will continue IOP to reduce symptoms, combat distortions, improve self-care, and improve daily functioning. Narrative Note: []
--- NOTE | 2021-02-07 11:10 | BH.SGPN.GN ---
Behaviors/Verbalizations/Mental Status: []Client alert and oriented, casually dressed and groomed. Eye contact good. Motor activity appropriate. Speech within normal limits. Affect constricted, mood dysthymic. Thoughts linear, logical, no signs of hallucinations or delusions. Client Response/Progress/Benefit: []Client responded well to session, engaged during activity and discussion. Client completed the fear of failure worksheet and reported that fear of failure has kept client from losing weight, school, and applying to a job. Client able to identify thoughts and behaviors that reinforce personal fear of failure which included: negative self-talk, past rejections, lack of self-compassion, and fixed thoughts. Client attentive during discussion of the different strategies to help overcome fear of failure. Identified wanting to work on challenging cognitive distortions to overcome fear of failure. Appeared to benefit from identifying strategies with peers. Will continue IOP tx to prevent decompensation, combat negative thinking, and increase self-confidence. Narrative Note: []
--- NOTE | 2021-02-09 10:03 | BH.MDN ---
Multi-Disciplinary Note - Note 45-min Individual Time Started:: 09:10 Date: 02/09/21 Purpose of session/treatment goals addressed:: To work on goal #1 of client's tx plan. Eye Contact:: Good Motor Activity:: Appropriate Appearance:: Neat Speech:: Appropriate Mood:: Anxious, Dysthymic Affect:: Other - incongruent-often smiling while discussing difficult topics. Thoughts:: Linear, Logical, No evidence of hallucinations/delusions noted Staff Interventions:: Therapist used active listening and helped client reflect on positives. Therapist reviewed cognitive distortions with client and helped client identify her common distortions. Reviewed core beliefs and had client complete the mistaken beliefs questionnaire. Therapist processed the resulted with client and taught client self-compassion strategies to combat these distortions. Therapist gave client homework to begin logging negative thoughts and using self-compassion to challenge the negative thoughts. Client Response:: Client responded well to session, open to meeting with therapist. Client shared she has been doing well with using opposite action at home. Client has been exercising and making her bed each morning. However, client shared she struggles still with feeling lonely and having negative thought patterns when client is not distracted. Client reviewed the common cognitive distortions and connected most with shoulds and musts, overgeneralizing, jumping to conclusions, and emotional reasoning. Client shared she often takes blame for things, even if they are out of her control. Client learned about core beliefs and completed the mistaken belief questionnaire. Client identified two core beliefs, there's something wrong with me and I don't know how to do a lot. Client also gained insight that she believes her worth is dependent on external achievements and on others' love. Client reflected on how these mistaken belief have impacted client at home, school, and socially. Client receptive to learning about self-compassion as a tool to help create new core beliefs. Client learned the three components of self-compassion and will use these components for homework. Risks/Concerns:: Evidence of fleeting passive SI with fantasy plan to overdose. Denies any active suicidal ideations, plan, or intent as of 02/09/21. Future oriented. Progress Toward Goals/Plan:: Client reports feeling somewhat better since her last session. Client reports she has been using more opposite action which has helped resolve some of her depression symptoms, but client still feels highly lonely and blue. Client's biggest stressor is returning to school and reducing her depression. Client will continue IOP tx to promote mood stability, reduce distorted thought patterns, and increase self-confidence. Time Stopped:: 09:52
--- NOTE | 2021-02-09 10:15 | BH.SGPN.GN ---
Behaviors/Verbalizations/Mental Status: [] Eye contact is good. Motor activity is appropriate. Appearance is casual. Speech is Appropriate. Mood is anxious. Affect is congruent. Thoughts are linear and logical. No evidence of psychosis. Client Response/Progress/Benefit: [] Pt was an active participant in group discussion and activity. Attentive during psychoeducation. Pt provided feedback and insight into reasons that people take action to improve mental wellness which included; benefits outweigh the risks, distress so long that one has to do something, hopeless and need options, and external motivations. Group members were able to identify what exactly taking action meant to them which included; starting and showing up to IOP and mental health treatment, taking medications, utilizing skills, and making an effort. Pt identified the obstacles that are holding her back from taking action which were lack of self-compassion and regret. Benefited from increase awareness of the importance of taking action as well as obstacles that impact her from taking actions. Will continue in IOP to prevent decompensation, stabilize mood, and improve functioning to return to college. Narrative Note: []
--- NOTE | 2021-02-09 11:15 | BH.SGPN.GN ---
Behaviors/Verbalizations/Mental Status: []Client alert and oriented, neatly dressed and appropriately groomed. Eye contact good. Motor activity appropriate. Speech within normal limits. Affect constricted, mood dysthymic. Thoughts linear, logical, no signs of hallucinations or delusions. Client Response/Progress/Benefit: []Client responded well to session, taking notes and participating in worksheet discussion. Client set a goal to gain control over her regret. Client wants to be able to work on this by identifying one or more distorted thoughts a week that reinforce regret and using self-compassion strategies to reframe them. Client shared she will her spirituality, self-compassion, and supports to help client accomplish this goal. Appeared to benefit from identifying a small goal to benefit mental health. Will continue IOP tx to reduce distorted thought patterns, increase self-confidence, and improve daily functioning. Narrative Note: []
--- NOTE | 2021-02-09 12:30 | PCM.BH.PN_ITS ---
Progress Note Progress Note: History of Present Illness/Interim History: [] Patient is a 20-year-old female who is seen in follow-up at the [facility] behavioral health IOP program. I last saw the patient 1 week ago. The patient states that she feels a little better now and feels that she is using the skills that she has learned in the IOP program for the past week. She still has occasional hopelessness at times and still has a fleeting fantasy of suicidal ideation with a plan to overdose. She is still planning to move into a dorm in 3 weeks at [facility] which has been a big source of stress for her in the past. Her intrusive thoughts and rituals are unchanged from last visit. She denies active suicidal ideation, homicidal ideation, hallucinations, and delusions. Current Psychiatric Medications: [] Effexor XR 225 mg p.o. nightly (x1 year); Abilify 5 mg p.o. daily (x6-month); BuSpar 10 mg twice daily; metoprolol 25 mg p.o. daily (this was started because the Effexor made her heart rate increase according to the patient). Mental Status Examination: [] Patient is a 20-year-old female who is casually dressed and groomed with good hygiene. She has no psychomotor agitation or retardation. Eye contact is good and speech is normal rate and rhythm and fluent with no pressure. Mood is depressed. Affect is constricted. Thought process is goal-directed and organized. Thought content: There is evidence of intrusive thoughts around jehovah's witness and romantic interests. There is evidence of fleeting passive suicidal ideation with a fantasy plan to overdose. There is no evidence of active suicidal ideation. There is no evidence of homicidal ideation, hallucinations, delusions. Reality testing is intact. Impulsivity is moderate. Judgment is intact. Insight is good. Diagnoses: [] 1. Obsessive-compulsive disorder 2. Generalized anxiety disorder; separation anxiety; social anxiety disorder 3. Major depressive disorder, recurrent, severe without psychosis 4. School, primary support issues Plan: [] The patient will continue the IOP program at [facility] as the structure, support, education and group therapy will hopefully prevent worsening of the patient's symptoms which might require hospitalization. She felt safe during the interview and if it anytime she does not feel safe she will let us know or go to the emergency room. The risks, options, and possible complications and side effects of the medications were discussed with the patient and she understands accepts these. The patient was given the option of increasing her Effexor XR to 300 mg p.o. nightly as her blood pressure tends to run low. She refuses this option as she felt the Effexor caused an increase in her heart rate which has been relieved with metoprolol prescribed by her PCP. She was then given the option of increasing her Abilify to 7.5 mg p.o. nightly and she accepts this option. This was done because of the stressor coming up in 3 or 4 weeks of her trying to move in the dorm. She will continue to follow-up with her outpatient psychiatric and medical providers. I will see the patient in follow-up in 2 weeks or as needed. The patient will need a prescription eventually for the higher dose of Abilify but she feels she has enough at home now.
--- NOTE | 2021-02-10 09:00 | BH.SGPN.GN ---
Behaviors/Verbalizations/Mental Status: []Eye contact is good. Motor activity is appropriate. Appearance is neat. Speech is Appropriate. Mood is depressed and anxious. Affect is flat. Thoughts are linear and logical. No evidence of psychosis. Reviewed daily check in sheet and pt reports 1/5 for suicidal thoughts and 0/5 for intent. Future oriented during check-in. Client Response/Progress/Benefit: []Client responded well to session, receptive to feedback. Client reports feeling a little sad and a little hopeful this morning. Client stated after yesterday's individual session, client went home and cried because I realized how negative I am with myself. Client shared gaining awareness of her negative core beliefs was difficult, but client states I think it's also a step in the right direction. Client's biggest stressor right now is returning to school, but client took an important self-care step and took one less class this semester. Client also reflected on her progress with working out more consistently which is helping her mood. Appeared to benefit from feedback from peers and therapist. Progress noted in boundary client administered with herself. Will continue IOP tx improve mood, reduce negative thinking patterns, and increase self-confidence. Narrative Note: []
--- NOTE | 2021-02-10 10:00 | BH.SGPN.GN ---
Behaviors/Verbalizations/Mental Status: [] Eye contact is good. Motor activity is appropriate. Appearance is casual. Speech is Appropriate. Mood is anxious. Affect is congruent. Thoughts are linear and logical. No evidence of psychosis. Client Response/Progress/Benefit: [] Pt was an active participant in group discussion. Attentive during psychoeducation on the impact of anxiety, benefits of anxiety, and the different anxiety disorders. Pt asked questions and was engaged during discussion on types of anxiety disorders (OCD, PTSD, Panic D/O, Agoraphobia, KINGS, Acute Stress Disorder, and Phobias). Group worked together to identify a list of common signs of anxiety which included; feeling tense, shakiness, sweating, tight chest, upset stomach, feeling flush, SOB, increased heart rate, headache, numbness, etc). Group was primarily psychoeducational in nature and pt was attentive, engaged, and provided insight at times. Benefited from increased awareness of different types of anxiety disorders as well as benefits and importance of identifying physiological signs of anxiety. Will continue in IOP to increase health coping, prevent decompensation, and improve functining to return to college. Narrative Note: []
--- NOTE | 2021-02-10 11:05 | BH.SGPN.GN ---
Behaviors/Verbalizations/Mental Status: []Client alert and oriented, casually dressed and groomed. Eye contact good. Motor activity appropriate. Speech within normal limits. Affect congruent, mood euthymic. Thoughts linear, logical, no signs of hallucinations or delusions. Client Response/Progress/Benefit: []Client was an active participant in group discussion and listened attentively to peers. Reviewed safety behaviors she engages in that reinforce anxiety. Client stated her safety behaviors are avoidance, quitting, and reassurance seeking. Client reported she recognizes these safety behaviors only work for a few minutes but the anxiety ultimately returns. Attentive during psychoeducation on mindfulness coping skills and their impact on mental health wellness. Worked with group to identify healthy coping strategies to manage anxious symptoms. Appeared to benefit from learning healthy skills to help manage anxiety. Pt to continue IOP to increase healthy coping, challenge distorted thoughts and prevent decompensation. Narrative Note: []
--- NOTE | 2021-02-14 09:04 | BH.SGPN.GN ---
Behaviors/Verbalizations/Mental Status: []Client alert and oriented, casually dressed and groomed. Eye contact good. Motor activity appropriate. Speech within normal limits. Affect congruent, mood anxious and euthymic. Thoughts linear, logical, no signs of hallucinations or delusions. Reviewed client?s symptom tracker, no risk for suicidal ideation, plan, or intent as of 02/14/21 Client Response/Progress/Benefit: [] Client responded well to session, attentive, providing supportive feedback, and willing to process with group. Client reports feeling ?regulated? this morning and expressed this is due to continuing to take steps in making self-care an active part of her routine. Discussed taking steps to practice mindfulness over the weekend while attending a local [email or web address] fair. Shared this was a challenge but she did well to remain in the moment and ended up enjoying the experience. Shared she has felt less depressed as she has been making strides in improving her positive self-talk as well, noting this has been ?a journey? but she feels she is continuing to grow in this area. Current stressor identified as returning to school next month. Appeared to benefit from group support and encouragement. Will continue IOP tx to prevent decompensation, continue to improve mood stability, and further manage anxiety. Narrative Note: []
--- NOTE | 2021-02-14 10:10 | BH.SGPN.GN ---
Behaviors/Verbalizations/Mental Status: [] Eye contact is good. Motor activity is appropriate. Appearance is casual. Speech is Appropriate. Mood is anxious. Affect is congruent. Thoughts are linear and logical. No evidence of psychosis. Client Response/Progress/Benefit: [] Pt was an active participant in group discussion and activity. Attentive during psychoeducation. Provided feedback and insight. Along with group members pt provided insight on definition and benefits of self-care. Benefits that the group was able to identify included; improves relationships, decreases anger and burnout, gives one a sense of identity, improves communication, increases awareness of values/needs, can rejuvenate oneself, helps one be more engaged, improves physical health, and can improve productivity. Pt participated in activity and was able to make connect between experiential group task and self-care. Group processed the activity and identified consequences of neglecting self-care which can include; hospitalization, suicide attempts, lose supports, and poor overall functioning. Benefited from group by increasing awareness of benefits to self-care and consequences of neglecting self-care. Will continue in IOP to maintain safety, increase healthy coping skills, prevent decompensation, and improve functioning to return to school. Narrative Note: []
--- NOTE | 2021-02-14 11:10 | BH.SGPN.GN ---
Behaviors/Verbalizations/Mental Status: []Client alert and oriented, neatly dressed and groomed. Eye contact good. Motor activity appropriate. Speech within normal limits. Affect congruent, mood anxious and euthymic. Thoughts linear, logical, no signs of hallucinations or delusions. Client Response/Progress/Benefit: []Client engaged participant AEB client taking notes during discussion and listened attentively to peers. Participated in group discussion on the various areas of self-care, benefits, and types of self-care activities for each area. Client completed worksheet in which client identified current self-care practices and what self-care activities client wants to start using. Client reported wanting work on psychological self-care by reducing the time client is on her cellphone. Client wants to cut back on social media which client believes will help reduce negative thinking and comparison. Client wants to cut back by only checking her phone 2-3 times a day. Appeared to benefit from reflecting on the area of self-care client can improve and setting a small goal. Will continue IOP tx to promote mood stability, combat distortions, and improve overall functioning to help client return to school. Narrative Note: []
--- NOTE | 2021-02-15 11:05 | BH.SGPN.GN ---
Behaviors/Verbalizations/Mental Status: []Eye contact is good. Alert and oriented. Motor activity is appropriate. Appearance is casual. grooming is appropriate. Speech is Appropriate. Mood is euthymic. Affect is congruent. Thoughts are linear and logical. No evidence of psychosis or hallucinations. Client Response/Progress/Benefit: []Client was engaged during discussion, did well to complete activity and process with the group. Client was willing to complete the worksheet in which she was challenged to develop a personal SMART goal. Client chose the goal complete 3 different tasks daily to clean her room. Client stated this will benefit her by reducing clutter and decrease anxiety. Client identified her barriers which included: low motivation and not knowing where to start. Client receptive to identifying solutions for these barriers and willing to begin working on this goal. Benefited from this group by developing a short-term SMART goal related to mental health. Will continue IOP tx to continue use of healthy coping, challenge distorted thoughts and prevent decompensation. Narrative Note: []
--- NOTE | 2021-02-16 09:00 | BH.SGPN.GN ---
Behaviors/Verbalizations/Mental Status: []Client alert and oriented, neatly dressed and groomed. Eye contact good. Motor activity appropriate. Speech within normal limits. Affect congruent, mood euthymic and anxious. Thoughts linear, logical, no signs of hallucinations or delusions. Reviewed client?s symptom tracker, no risk for suicidal ideation, plan, or intent as of 02/16/21 Client Response/Progress/Benefit: []Client responded well to session, attentive and providing support to peers. Client reports feeling regulated this morning which to client means even tempered. Client stated her biggest stressor continues to be returning to school next week. Client shared I've been avoiding thinking about school and some things I need to do, no it's here. Client stated she has been trying to use more opposite action and plans to work on some of the things she has been avoiding today. Client has also been practicing self-compassion and more positive self-talk which client finds helpful. Client reports overall her functioning has been improved. Appeared to benefit from reflecting on her wins. Will continue IOP tx to promote gains and help client transition back to college. Narrative Note: []
--- NOTE | 2021-02-16 10:07 | BH.SGPN.GN ---
Behaviors/Verbalizations/Mental Status: []Client alert and oriented, casually dressed and groomed. Eye contact good. Motor activity appropriate. Speech within normal limits. Affect congruent, mood anxious and euthymic. Thoughts linear, logical, no signs of hallucinations or delusions. Client Response/Progress/Benefit: []Pt was well engaged in group AEB taking notes, listening attentively, and providing input throughout. Attentive during psychoeducation and discussed the importance of goal setting with the group. Pt indicated ?In order to get to the goal, you?re going to have to develop skills to see progress or you won?t stay motivated. You have to take the first steps before you can take the last ones?. Group identified potential benefits of having goals include: they motivate, increase self-esteem, and are needed to have progress, help make changes when things aren?t working, create structure, and provide a sense of purpose. Group also worked together to identify barriers to goal-setting which included; negative self-talk, lack of direction, unrealistic or too broad of goals, and past negative experiences. Pt identified personal barrier to include negative self-talk and fear of failure. Benefited from increased awareness of benefits and barriers to goal-setting. Progress noted in increased engagement and internalization of treatment materials. Pt will continue in IOP to prevent decompensation, further learn and implement healthy coping skills, and continue to improve daily functioning. Narrative Note: []
--- NOTE | 2021-02-16 11:05 | BH.SGPN.GN ---
Behaviors/Verbalizations/Mental Status: []Eye contact is fair. Alert and oriented. Motor activity is appropriate. Appearance is casual. grooming is appropriate. Speech is Appropriate. Mood is anxious. Affect is constricted. Thoughts are linear and logical. No evidence of psychosis or hallucinations. Client Response/Progress/Benefit: []Client was engaged during discussion, did well to complete activity and process with the group. Client was willing to complete the worksheet in which was challenged to develop a personal SMART goal. Client was able to create a short term goal that was mental health focused. Client worked on identifying potential barriers that could prevent her from accomplishing identified goal. Accepted feedback and support from others when identifying potential solutions to the barriers. Benefited from this group by developing a short-term SMART goal related to mental health. Will continue IOP tx to challenge negative thoughts, increase healthy coping skills and prevent decompensation.
--- NOTE | 2021-02-16 14:20 | BH.MDN_ITS ---
Multi-Disciplinary Note - Note 30-min Individual Time Started:: 12:00 Date: 02/16/21 Purpose of session/treatment goals addressed:: To work on goal #2 of client's tx plan and to create new, more balanced core beliefs. Eye Contact:: Good Motor Activity:: Appropriate Appearance:: Neat Speech:: Appropriate Mood:: Anxious Affect:: Congruent Thoughts:: Linear, Logical, No evidence of hallucinations/delusions noted Staff Interventions:: Therapist helped client identify recent mental health wins. Therapist provided psychoeducation on creating more balanced core beliefs and helped client gather evidence to support new beliefs. Therapist helped client identify anxiety triggers and create a fear ladder for returning to school. Gave client homework to do one fearful thing from the ladder repeatedly prior to returning to school. Client Response:: Client responded well to session, open to meeting with therapist. Client stated she has been using opposite action and is doing well with catching distorted thoughts. Client also has been working on using self- soothing to provide reassurance and reduce anxiety. Client's biggest stressor is returning to college next week. Client's anxious thoughts include I'll be lonely, I won't have my parents to depend on, and I can't do it on my own. Client acknowledge that these anxious thoughts are also triggers for negative core beliefs. Client receptive to creating new core beliefs and discussed how one strengths new core beliefs. Client began gathering evidence for her new core belief including things client has done recently on her own without help from her parents. Client also created a fear ladder with tasks that client has been avoiding or is anxious about regarding returning to college. Client set a goal to begin packing today for an hour and to scan her vaccination card. Client also problem-solved other coping skills and self-talk she can use to help reduce anxiety at school. Risks/Concerns:: Client denies any suicidal ideations, plan, or intent as of 02/16/21. Client is future oriented. Progress Toward Goals/Plan:: Client continues to respond well to IOP tx AEB her self-report of using healthy coping skills and her consistent attendance. Client reports overall she has been more active at home and social with friends. Client plans to move into her college dorm next week which is her biggest stressor. Client stated she has been avoiding things that remind her of college, but wants to work on addressing them before next week. Will continue IOP tx to promote mood stability, increase emotional regulation skills, and increase self- confidence. Time Stopped:: 12:35
--- NOTE | 2021-02-18 09:00 | BH.SGPN.GN ---
Behaviors/Verbalizations/Mental Status: [] Eye contact is good. Motor activity is appropriate. Appearance is casual. Speech is Appropriate. Mood is anxious. Affect is congruent. Thoughts are linear and logical. No evidence of psychosis. Reviewed daily check in sheet and no reports of suicidal ideations or intent. Client Response/Progress/Benefit: [] Pt participated at times during the group discussion on positive psychology. Daily symptom tracker notes 5 for anxiety/panic and /5 for depression. Pt reports I'm doing much better due to more structure and routine. Feels motivated and excited about returning to college. Shared that she has not been able to stay on campus for the past several years due to her mental health struggles however is more confident than ever. Plan is to move into her dorm and set up routine which she feels will help. Utilizing her skills consistently and completing tasks that are not fun however needed to ensure that she succeeds. Progress noted per pt report. Benefited from group support, encouragement, and feedback. Will continue in IOP to maintain gains, increase healthy coping, decrease negative intrusive thoughts, and prevent decompensation. Narrative Note: []
--- NOTE | 2021-02-18 10:03 | BH.SGPN.GN ---
Behaviors/Verbalizations/Mental Status: []Client alert and oriented, neatly dressed and groomed. Eye contact good. Motor activity appropriate. Speech within normal limits. Affect constricted, mood euthymic and anxious. Thoughts linear, logical, no signs of hallucinations or delusions. Client Response/Progress/Benefit: []Client engaged in session AEB taking notes and contributing to discussion. Client shared connecting with the importance of setting boundaries, and shared for her it is easier to ?give in? than to set boundaries with others. Client assisted group with identifying benefits of setting boundaries such as improved relationships, reduced anxiety, and increased self-esteem. Client shared the first step to healthier boundaries is to gain awareness of personal values. Listened during psychoeducation on different types of boundaries. Client seemed to benefit from increased awareness of how boundaries impact mental health and the different types of boundaries there are. Progress noted in client?s report of utilizing positive self-talk. Will continue IOP tx to promote mood stability, combat distortions, and help client more successfully transition back to college. Narrative Note: []
--- NOTE | 2021-02-18 11:12 | BH.SGPN.GN ---
Behaviors/Verbalizations/Mental Status: []Client alert and oriented, casually dressed and appropriately groomed. Eye contact good. Motor activity appropriate. Speech within normal limits. Affect congruent, mood euthymic, anxious. Thoughts linear and intact. no signs of delusions or hallucinations. Client Response/Progress/Benefit: [] Client responded well to session AEB listening attentively to peers and providing input at times. Client engaged in the boundary self-assessment activity and processed within their small group. Client was attentive during psychoeducation on the different boundary styles. Noted ranging from porous to rigid depending on the type of boundary. Client stated she tends to put others needs ahead of her own and feels guilty when saying ?no to others? Client recognizes that hinders her ability to set healthy boundaries. Participated in group discussion brainstorming various strategies for improving healthy personal boundaries. Client identified wanting to work on being more direct and specific about her needs when communicating them. Progress in improved communication with supports and use of self-care. Will continue IOP tx to continue challenging negative thoughts, improve confidence and prevent decompensation. Narrative Note: []
--- NOTE | 2021-02-21 09:00 | BH.SGPN.GN ---
Behaviors/Verbalizations/Mental Status: []Client alert and oriented, casually dressed and groomed. Eye contact good. Motor activity appropriate. Speech within normal limits. Affect congruent, mood anxious. Thoughts linear, logical, no signs of hallucinations or delusions. Reviewed client?s symptom tracker, no risk for suicidal ideation, plan, or intent as of 02/21/21 Client Response/Progress/Benefit: [] Client responded well to session, attentive and willing to process with group. Client reports feeling ?optimistic? today as she was able to identify multiple mental health wins from the weekend. Shared reaching out to friends and spending time with them which was a positive and aided in practicing being in the moment. Notes that she had a potentially embarrassing moment when with her friends and would usually struggle with ruminating thoughts and overanalyzing the entire next day; however, did well to use thought challenging skills to prevent doing so. Identified this as a significant win as she was able to avoid unfair comparisons or feeling guilty as a result. Discussed current stressor as having the rest of the afternoon at home alone. Did well to identify several skills she could use to prevent from falling into anxious thinking patterns. Notes plans to begin packing for return to school and will listen to some music while doing so. Appeared to benefit from group support and encouragement. Progress in improved consistency in thought challenging skills and anxiety management. Will continue IOP tx to prevent decompensation, maintain mood stability, and continue to maintain gains. Narrative Note: []
--- NOTE | 2021-02-21 10:05 | BH.SGPN.GN ---
Behaviors/Verbalizations/Mental Status: []Client alert and oriented, casually dressed and groomed. Eye contact good. Motor activity appropriate. Speech within normal limits. Affect congruent, mood euthymic. Thoughts linear, logical, no signs of hallucinations or delusions. Client Response/Progress/Benefit: []Client passive participant AEB client providing limited contributions to group, however taking notes and appeared to listen to others throughout. Connected with discussion on crisis and how coping with external crises by using unhealthy coping skills could result in a personal crisis. Group reflected on the importance of having awareness of personal warning signs in order to prevent reaching crisis point. Group identified potential warning signs for crisis and client completed the personal warning signs worksheet. Client identified personal crisis warning signs to include: loss of interest, crying more frequently, and not taking care of herself. Client benefited by increasing awareness of what leads to crisis and personal warning signs. Client will continue IOP to continue use of healthy coping, decrease anxiety and prevent decompensation. Narrative Note: []
--- NOTE | 2021-02-21 10:08 | BH.SGPN.GN ---
Behaviors/Verbalizations/Mental Status: []Client alert and oriented, neatly dressed and groomed. Eye contact good. Motor activity appropriate. Speech within normal limits. Affect congruent, mood anxious. Thoughts linear, logical, no signs of hallucinations or delusions Client Response/Progress/Benefit: []Client responded well to session as evidenced by client listening attentively to others and providing strategies during discussion. Client identified warning signs for crisis and gained further awareness of earliest warning signs. Client created a crisis action plan to help client better manage warning signs for crisis. Client?s action plan for loss of interest, crying more frequently, and not taking care of herself included coping skills such as: positive affirmations, opposite action, reminding self of strengths, thinking about consequences, ASMR, setting boundaries, and healthy distractions. Client stated wanting to also write or read one short poem a day to reduce stress and prevent crisis. Client appeared to benefit from creating a crisis action plan and increasing self-awareness. Client to continue IOP tx to reinforce healthy coping skills and help client transition back to college. Narrative Note: []
--- NOTE | 2021-02-23 09:00 | BH.SGPN.GN ---
Behaviors/Verbalizations/Mental Status: []Client alert and oriented, neatly dressed and groomed. Eye contact good. Motor activity appropriate. Speech within normal limits. Affect constricted, mood anxious. Thoughts linear, logical, no signs of hallucinations or delusions. Reviewed client?s symptom tracker, no risk for suicidal ideation, plan, or intent as of 02/23/21 Client Response/Progress/Benefit: []Client responded well to session, attentive and receptive to coping skill ideas from peers. Client reports feeling anxious this morning as this is the week client and her brother move back to college. Client shared yesterday she experienced physical symptoms of anxiety and felt a lot of nervous energy. Client stated I don't have the discipline yet to use grounding but the group helped client challenge this and reflect on the skills she did use. Client has been using self-talk to sooth herself and to challenge anxious thinking. Client was also encouraged to practice grounding when she is not anxious to help create a habit. Appeared to benefit from connecting with peers and reframing thoughts. Client self-reports reduced depression, but increased anxiety today. Client will continue IOP tx for one more day before returning to college. Client can benefit from one more day to reinforce healthy coping skills and establish aftercare plan. Narrative Note: []
--- NOTE | 2021-02-23 10:15 | BH.SGPN.GN ---
Behaviors/Verbalizations/Mental Status: []Eye contact is good. Motor activity is appropriate. Appearance is casual. Speech is Appropriate. Mood is anxious and euthymic. Affect is congruent. Thoughts are linear and logical. No evidence of psychosis. Client Response/Progress/Benefit: []Pt was an active participant in group discussion and activity. Attentive during psychoeducation on factors that build resiliency and providing input throughout. Worked with peers to define resilience and shared that resilience ?is something we can learn or develop and can help us to keep us from staying stuck in one place?. Pt along with peers also identified what could impact personal resilience, which included: environment, learned behaviors and learned coping skills, beliefs, habits, and past experiences. Pt connected with introduction to various resilience factors discussed and noted relating to importance of perspective in developing resilience. Pt benefited by increasing awareness on the role of resilience in mental health and factors that can help build resiliency. Will discharge from IOP on this date due to gains made and no longer meeting tx criteria, recommended continued outpatient tx. Narrative Note: []
--- NOTE | 2021-02-23 12:33 | PCM.BH.PN_ITS ---
Progress Note Progress Note: History of Present Illness/Interim History: [] The patient is a 20-year-old female who is seen in follow-up at the [facility] behavioral health IOP program. I last saw the patient 2 weeks ago and at that time her Abilify was increased to 7.5 mg in order to better help with her anxiety and depression. The patient states that she has been taking the increased dose for several weeks and feels that she is tolerating it well with no side effects. She feels that her mood is much less depressed than it was before. She denies any hopelessness whatsoever. She denies any suicidal ideation whatsoever and no plan for suicide. She is looking forward to moving into the dorm in 3 days and she admits she is nervous about this. Her OCD is still about at baseline and overall is okay. The patient feels that she really benefited from the IOP program and is looking forward to being discharged from the program in 2 days. The staff feels that she was very engaged and participated well in the IOP program. She denies suicidal ideation, homicidal ideation, hallucinations or delusions. Current Psychiatric Medications: [] Abilify 7.5 mg p.o. daily (this dose x2 weeks); Effexor XR 225 mg p.o. nightly (x1 year); BuSpar 10 mg twice daily; metoprolol 25 mg p.o. daily Mental Status Examination: [] The patient is a 20-year-old female who is casually dressed and groomed with good hygiene and is seen wearing a mask due to the pandemic. She has no psychomotor agitation or retardation. Eye contact is good and speech is normal rate and rhythm and fluent with no pressure. Mood is mildly depressed, approaching euthymia. Affect is full and normal. Thought process is goal-directed and organized. Thought content: There is no evidence of suicidal ideation, plan for suicide, homicidal ideation, hallucinations or delusions. The patient continues to have baseline intrusive thoughts around mormon and romantic interests but these are easy to ignore. Impulsivity is mild. Judgment is intact. Insight is good. Diagnoses: [] 1. Obsessive-compulsive disorder 2. Major depressive disorder, recurrent, severe without psychosis (resolving) 3. Generalized anxiety disorder; separation anxiety; social anxiety disorder 4. School and primary support issues Plan: [] The patient will continue the IOP program for 2 more days and then will be discharge if she continues to do well. She felt safe during the interview and if it anytime she does not feel safe she will let us know or go to the emergency room. The risks, options, and possible complications and side effects of the medications were again discussed with the patient and she understands and accepts these. No medication changes were made today. Refill was given on her Abilify prescription with, 30 days with 1 refill. The patient will follow up with her outpatient providers.
--- NOTE | 2021-02-23 13:56 | BH.MDN_ITS ---
Multi-Disciplinary Note - Note 30-min Individual Time Started:: 11:45 Date: 02/23/21 Purpose of session/treatment goals addressed:: The purpose of this session was to review client's progress and review strategies that will promote mood stability and gains made in IOP. Another goal was to discuss discharge recommendations and to review emotional regulation skills. Eye Contact:: Good Motor Activity:: Appropriate Appearance:: Neat Speech:: Appropriate Mood:: Anxious Affect:: Congruent Thoughts:: Other - ruminating, No evidence of hallucinations/delusions noted Staff Interventions:: mindfulness skills, discharge planning, strengths perspective, taught coping skills Client Response:: Client responded well to session, open to meeting with therapist. Client reports feeling anxious today, but less anxious than she did at the start of the day. Client shared she feels more anticipatory anxiety than anything and states she thinks once she moves in to school, she will feel better. Client and therapist reviewed emotional regulation skills such as self- soothing, distractions, planning, and halting unhealthy coping skills. Client reviewed current coping skills she uses and also identified additional skills she could try. Client reflected on progress since starting IOP and was given information for psychiatry options. Risks/Concerns:: Client denies any suicidal ideations, plan, or intent as of 02/23/21. Future oriented. Progress Toward Goals/Plan:: Client is progressing well and plans to discharge from IOP tx this Sunday. Client is anxious about returning to college, but client reports feeling much less depressed than when she started IOP tx. Client self-reports progress with reduced isolation, improved energy, improved outlook, and increased use of healthy coping skills. Client plans to continue seeing her outpatient therapist when she returns to school and client has an appointment next week. Client can benefit from one more IOP tx day to reinforce healthy coping skills and establish aftercare plan. Time Stopped:: 12:10
--- NOTE | 2021-02-25 08:12 | BH.AFTERPLAN ---
Aftercare Plan - Demographics Treatment End Date:: 02/25/21 Psychiatrist:: Gela Rene Psychiatrist Office #:: [id number] [facility] Therapist:: Payal Marinelli Therapist Phone #:: [phone] - Plan Details Progress/Aftercare Plan Details:: Ayde has made significant strides since starting IOP as shown by her reduced symptoms, increased self-awareness, and overall improved ability to manage emotions and daily stressors. When Ayde started IOP she was struggling with many different life stressors that were causing depression, anxiety, and isolation. Now, Ayde is actively using healthy coping skills, facing anxious situations head-on, using positive self-talk, setting healthy boundaries with herself, using the awareness she has gained to manage her emotions, and practicing self-reflection on a daily basis. Ayde contributed to group discussions, offered emotional support to peers, and consistently followed through with her goals. In individual sessions, Ayde was receptive to feedback, consistent with homework, and willing to push herself. Ayde showed resilience each day she came to [facility] and was very receptive to learning. Ayde?s DSM-5 symptoms decreased by 45% from admission. Depression decreased by 17%, anxiety decreased by 13%, and thoughts of wanting to hurt herself decreased by 100%. Ayde plans to follow up with Dr. Banuelos for individual counseling and was provided with options for outpatient psychiatry. Strategies for Success:: 1. Self-compassion! Remember to treat yourself with the same compassion and understanding you would treat others with. 2. Gather evidence for your new core beliefs and remind yourself of strengths. 3. Opposite action. Especially when you do not want to. 4. Continue to practice positive self-talk and breathe! 5. ASMR, music, 5-senses. 6. Schedule in time to practice your coping skills- especially the calming ones. 6. Thoughts are thoughts not facts! 7. Focus on one day at a time and what you have accomplished. 8. Halt unhelpful behaviors and be mindful of your social media use. - Appointments Appointments/Referrals to Other Services:: 1. Dr. Banuelos for individual counseling next week. 2. [place] [phone] or [facility] for psychiatry. - Medications Home Medications: Home Medications levonorgestrel-ethinyl estradiol 0.1 mg-20 mcg tablet See Rx Instructions .ROUTE .COMPLEX #84 tab 01/25/21 metoprolol tartrate 25 mg tablet 25 mg PO DAILY 01/25/21 buspirone 10 mg PO BID 02/02/21 venlafaxine 225 mg PO DAILY 02/02/21 aripiprazole [Abilify] 5 mg PO DAILY 30 Days #30 tab 02/23/21
--- NOTE | 2021-02-25 09:00 | BH.SGPN.GN ---
Behaviors/Verbalizations/Mental Status: [] Eye contact is good. Motor activity is appropriate. Appearance is casual. Speech is Appropriate. Mood is euthymic. Affect is full. Thoughts are linear and logical. No evidence of psychosis. Reviewed daily check in sheet and no reports of suicidal ideations or intent. Client Response/Progress/Benefit: [] Pt was an active participant in group discussion. Attentive. Provided appropriate feedback. Emotion for today is sad due to this being her last day in IOP. She is set to move to college tomorrow and feels prepared. She reports that his is the first year that she has not had daily panic attacks and crying spells the 2 weeks prior to moving. She is optimistic and shared with the group that she is grateful for their feedback and support while she was in [facility]. Shared that IOP was helpful in changing her perspective that being negative about herself was right way to motivate herself. Reports increased hope. Benefited from group support and encouragement. Will be discharged from [facility] today. Narrative Note: []
--- NOTE | 2021-02-25 10:10 | BH.SGPN.GN ---
Behaviors/Verbalizations/Mental Status: []Client alert and oriented, neatly dressed and groomed. Eye contact good. Motor activity appropriate. Speech within normal limits. Affect congruent, mood euthymic and anxious. Thoughts linear, logical, no signs of hallucinations or delusions. Client Response/Progress/Benefit: []Client responded well to session, attentive and participating in discussion. Participated in discussion of things that can keep people feeling trapped or stuck in life including; avoidance, self-doubt, unhealthy coping skills, and fear of failure. Group discussed the connection between thoughts, emotions, and behaviors as well as how negative thinking can keep a person stuck. Client attentive during psychoeducation on maintenance cycles. Client able to identify negative thoughts that have kept client stuck which included ?I?m going to be lonely, I can?t do this, and I?m stuck.? Appeared to benefit from gaining awareness of how negative thoughts reinforce mental health symptoms and keep people stuck. Will discharge from [facility] tx today as client has accomplished her treatment goals and will be returning to college. Narrative Note: []
--- NOTE | 2021-02-25 11:12 | BH.SGPN.GN ---
Behaviors/Verbalizations/Mental Status: []Client alert and oriented, casually dressed and groomed. Eye contact good. Motor activity appropriate. Speech within normal limits. Affect congruent, mood anxious and euthymic. Thoughts linear, logical, no signs of hallucinations or delusions. Client Response/Progress/Benefit: []Client responded well to session, contributing to discussion and providing supportive feedback. Client appeared to connect with maintenance cycles and recognized how negative thinking can keep a person stuck. Shared that negative thinking has prevented client from trying ?the anxious thing? in the past. Client identified a negative thought that has kept her stuck. Client's thought was I will be lonely. Client able to connect how this thought maintains anxiety and depressive cycles, reinforces poor self-esteem, and increases isolation. Client reported when she thinks this way, she ends up not putting herself out there and doesn?t make new friends as a result. Client worked to reframe the thought by finding more rational, realistic ways to look at the thoughts and then processed within the small group setting. Shared she could instead try saying It takes time to make friends in a new place. The more you step out of your comfort zone, the more friends you?ll make. Client shared this thought would improve mental health because it would help client feel more confident in stepping outside her comfort zone and end up socializing more as a result?. Client appeared to benefit from practicing challenging negative thinking. Will discharge from IOP group on this date as she is returning to college next week. Met [facility] level of care goals and is appropriate to step down to outpatient services. Narrative Note: []
--- NOTE | 2021-02-25 13:07 | BH.DS_ITS ---
Discharge Summary - Demographics Date of Admission:: 01/31/21 Discharge Date: 02/25/21 Presenting Problems at Admission:: Client is a 20-year-old female with a history of OCD, depression, and anxiety. Client was referred [facility] by her PCP due to worsening symptoms of depression, OCD, and anxiety over the past few months. Client was diagnosed with OCD in high school and she reports that her intrusive thoughts have decreased significantly since getting counseling. However, some intrusive thoughts are still present such as if I don't read the bible something bad will happen. Client reports her OCD manifests in different ways and at admission, client reported having obsessional thoughts about a pablo she is talking to not responding to her texts. Client endorsed a depressed mood over the past few months with lack of concentration, lack of energy, crying spells, isolation, apathy, and hopelessness. Client also endorsed thoughts of and fleeting passive suicidal ideations at times. Returning to school was a major stressor. Client's symptoms were impacting her social and educational functioning. Discharge Diagnoses:: Obsessive-compulsive disorder; Generalized anxiety disorder, separation anxiety, social anxiety disorder; Major depressive disorder, recurrent, severe without psychosis F 33.2 Reason for Discharge:: Client has met her treatment goals and plans to start back at college next week. Client no longer meets criteria for [facility] level of care. - Treatment Progress During Treatment & Response: Client was a consistent and active participant in [facility]. Client took notes, contributed during discussions, and completed homework from individual sessions. Client's overall DSM-5 symptoms decreased by 45% since admission. Depression decreased by 17%, anxiety decreased by 13%, and thoughts of wanting to hurt herself decreased by 100%. Issues Still to be Addressed:: Client can benefit from continued counseling to reinforce healthy coping skills and promote gains. Client has gained awareness of negative core beliefs and began working on developing more balanced core beliefs. Client can benefit from increased self-compassion, self-confidence, and gaining healthy supports. Discharge Recommendations/Instructions:: Client is recommended to follow up with Dr. Banuelos for individual counseling. Client was also provided with resources for psychiatry including [facility]. Client encouraged to come back to [facility] during winter break if she needs additional supports or if her symptoms worsen. Discharge Handout: Complete Discharge Handout with client on aftercare options and continuity of care.
== END 2021-02-25 12:56 | disposition home or self-care (01) ==
LOC: BHIOP 07:49
PROVIDERS: PCP Family Medicine; Referring Provider Psychiatry & Neurology Psychiatry; Visit Provider Psychiatry & Neurology Psychiatry
DX: F33.2 Major depressive disorder, recurrent severe without psychotic features (principal); R46.81 Obsessive-compulsive behavior; F41.1 Generalized anxiety disorder; F41.8 Other specified anxiety disorders
CPT/HCPCS: S9480; 90832; 90834; 90853

== ENCOUNTER → 2021-04-23 13:55 | Outpatient (CLI) | payer OTHER, SELFPAY | PROVIDERS: PCP Family Medicine; Referring Provider Physician Assistant Medical; Visit Provider Physician Assistant Medical | DX: J02.9 Acute pharyngitis, unspecified (principal) | CPT/HCPCS: 87635; U0005; U0003 ==

== ENCOUNTER → 2021-05-16 18:21 | Outpatient (CLI) | payer OTHER, SELFPAY | PROVIDERS: PCP Family Medicine; Visit Provider Physician Assistant Surgical | DX: J02.9 Acute pharyngitis, unspecified (principal) | CPT/HCPCS: 87070 ==